=== PATIENT | male | born 1970 | race Caucasian/White ===

== ENCOUNTER 2021-12-16 13:46 | Outpatient (CLI) | payer OTHER, SELFPAY ==
--- NOTE | ~2021-12-16 | XR_ITS ---
XR shoulder LT min 2V DATE: 12/16/2021 14:08 INDICATION: Anterior left shoulder pain after lifting weights TECHNIQUE: 4 views COMPARISON: None FINDINGS: There is mild degenerative spurring of the left acromioclavicular joint. No fracture or dis location, periosteal reaction or bone destruction or abnormal soft tissue calcification. IMPRESSION: No fracture or dislocation Mild degenerative spurring at left acromioclavicular joint Reviewed, dictated and finalized at location A.
== END 2021-12-16 13:47 | disposition home or self-care (01) ==
LOC: ANHIMG 13:52
PROVIDERS: PCP Family Medicine; Visit Provider Nurse Practitioner Adult Health
DX: M25.512 Pain in left shoulder (principal); M77.8 Other enthesopathies, not elsewhere classified
CPT/HCPCS: 73030

== ENCOUNTER 2024-04-21 10:33 | Outpatient (CLI) | payer OTHER, SELFPAY ==
--- NOTE | ~2024-04-21 | CT_ITS ---
EXAMINATION: CT shoulder LT wo con DATE: 04/21/2024 11:10 INDICATION: Left shoulder pain. TECHNIQUE: Computed tomography (CT) of the left shoulder was performed without intravenous contrast. Automated exposure control and iterative reconstruction technique were employed. The dose-length prod uct was 288.55 mGy-cm. COMPARISON: Left shoulder radiographs 12/16/2021 FINDINGS: Bone alignment is normal. No fracture. There is moderate osteoarthritis of acromioclavicula r joint and mild osteoarthritis of glenohumeral joint. There are dystrophic calcifications inferomedi al to lesser tuberosity. The musculature is normal. IMPRESSION: 1. Polyarticular osteoarthritis. Reviewed, dictated and finalized at location A.
== END 2024-04-21 10:34 | disposition home or self-care (01) ==
LOC: ANHIMG 10:34
PROVIDERS: PCP Family Medicine; Visit Provider Family Medicine
DX: M19.012 Primary osteoarthritis, left shoulder (principal)
CPT/HCPCS: 73200

== ENCOUNTER 2025-09-08 20:05 | Emergency (ER) | payer BC, SELFPAY ==
--- OUTSIDE RECORDS SUMMARY | 2025-09-07 15:00 | XMS_ITS | Encounter Summary ---
Author Organization [facility] Address [address] [place] [address] Care Team Providers Care Wood Type Finisher Name Role Phone Unavailable Primary Care Provider Unavailabl e Reason for Referral * Eval and Treat (Elective) - Open Specialty Diagnoses / Procedures Referred By Norman flood Referred To Contact Orthopedic Surgery Diagnoses Localized swelling, mass, or lump of right upper extremity Procedures CT OFFICE/OUTPATIENT ESTABLISHED MOD MDM [address] OFFICE/OUTPATIENT NEW MODERATE MDM 45 [place] [address] [place] [address] Phone: tel: fax: Jose Miguel Swanson MD [address] [address] Phone: tel: fax: Referral ID Status Reason Start Date Expiration Date Visits Re quested Visits Authorized [id number] Open 09/07/2025 09/07/2026 1 1 ER LAP TENDER Reason for Visit * Reason Comments lump On left deltoid , 1x week, pain started 2x day ago. Encounter Details Date Type Department Care Team (Late st Contact Info) Description 09/07/2025 3:00 PM SLIVER LAP TENDER Office Visit [facility] [place] [address] [place] [id number] [facility] [place] [address] [place] [address] Localized swelling, mass, or lump of right upper extremity (Primary Dx) Social History Tobacco Use Types Packs/Day Years Used Date Smoking Tobacco: Never Tobacco Cessation:Counseling Given: No Sex and Gender Information Value Date Recorded Sex Assigned at Not on file Legal Sex Male 2:57 AM SLIVER LAP TENDER Gender Identity Not on file Sexual Orientation Not on file documented as of this encounter Last Filed Vital Signs Vital Sign Reading Time Taken Comments Blood Pressure 158/76 09/07/2025 3:11 PM SLIVER LAP TENDER Pulse 87 09/07/2025 3:11 PM SLIVER LAP TENDER Temperature 36.7 C (98.1 F) 09/07/2025 3:11 PM SLIVER LAP TENDER Respiratory Rate 18 09/07/2025 3:11 PM SLIVER LAP TENDER Oxygen Saturation 98% 09/07/2025 3:11 PM SLIVER LAP TENDER Inhaled Oxygen Concentration - - Weight 81.6 kg (180 lb) 09/07/2025 3:11 PM SLIVER LAP TENDER Height 170.2 cm (5' 7) 09/07/2025 3:11 PM SLIVER LAP TENDER Body Mass Index 28.19 09/07/2025 3:11 PM SLIVER LAP TENDER documented in this encounter Patient Instructions * Attachments The following attachments cannot be sent through Care Everywhere. * Seroma: General Info (Frisian) documented in this encounter Progress Notes * Rubina Russo PA - 09/07/2025 3:00 PM CST Assessment and Plan Encounter Diagnosis Name Primary? Localized swelling, mass, or lump of right upper extremity Yes Arturo was seen today for lump. Diagnoses and all orders for this visit: Localized swelling, mass, or lump of right upper extremity - AMB REFERRAL TO ORTHOPEDIC SURGERY Other orders - cefadroxil (DURICEF) 500 mg capsule; Take 1 Capsule (500 mg) by mouth every 12 hours for 7 days. Comment: Diff dx: Seroma, abscess, hematoma, mass, other cyst, foreign body. Exam and hx c/w seroma at injection site. He is concerned about infection given increased pain in past 1-2 days and will cover with Duricef however history and exam with low suspicion for abscess. Would expect to see ecchymosis if this was hematoma which is not present. Advised to stop use of steroid given he is not having respiratory concerns to support use of oral steroid. F/U with Ortho for further evaluation. Do not have US available at urgent care to evaluate. He is advised to avoid IM injections in this area until this evaluated. Discussed signs/sx that would indicate need for repeat evaluation and/or ED. Vital signs and exam are reassuring. Advise follow-up with PCP or Ortho in 2-3 days if symptoms not improving, or follow-up with ED immediately if symptoms worsen. Subjective History of present illness Arturo Alvarez is a 55 y.o. male who presents with localized swelling to L upper shoulder x one week. He gives himself testosterone injections weekly and this was site of injection prior to onset of swelling. In the past 2 days the area has become painful. Denies N/T, fever, N/V, weakness. He has hx of similar condition to previous injection site on his R thigh however he states the swelling wentaway after a couple of days. He is currently being treated for a respiratory illness w/prednisone. Review of Systems Constitutional: has had no fever, chills, body aches, or recent illness. ENT: has had no sore throat, earache, nasal congestion, or sinus tenderness. Respiratory: has had no cough or shortness of breath. Cardiac: has had no chest pain or palpitations. Musculoskeletal: has had no pain in the joints or extremities. Muscle aches or stiffness. Dermatologic: has had recent raches or lesions. Neurologic: has had no recent headache, dizziness, numbness or tingling. Hematologic: has had no spontaneous bleeding or blood clots. Outpatient Medications Marked as Taking for the 09/07/25 encounter (Office Visit) with Micah Russo PA Medication Sig Dispense Refill albuterol sulfate 90 mcg/Actuation inhaler INHALE 1 TO 2 PUFFS BY MOUTH EVERY 4 TO 6 HOURS NEEDED FOR COUGH celecoxib (CeleBREX) 100 mg capsule Take 1 Capsule by mouth 2 times daily. dextroamphetamine-amphetamine (ADDERALL) 30 mg tablet Take 1 Tablet by mouth daily. methylPREDNISolone (MEDROL DOSPACK) 4 mg Tablets, Dose Pack take by mouth as directed on inside of package benzonatate (TESSALON) 100 mg capsule TAKE 1 CAPSULE BY MOUTH EVERY 6 TO 8 HOURS NEEDED cefadroxil (DURICEF) 500 mg capsule Take 1 Capsule (500 mg) by mouth every 12 hours for 7 days. 14 Capsule 0 There are no active problems to display for this patient. Social History Tobacco Use Smoking status: Never Substance Use Topics Drug use: Yes No family history on file. Objective Vitals: 09/07/25 1511 BP: (!) 158/76 Pulse: 87 Resp: 18 Temp: 98.1 ??F (36.7 ??C) SpO2: 98% Physical Exam General: Well-appearing, in no acute distress. HEENT: NCAT. PERRLA. EOMI. Nose/throat clear. Neck: Supple w/FROM. Neg tenderness. Neg lymphadenopathy. RESP: Normal resp effort. No cough. Clear. CV: Regular rate. Extrem: No peripheral edema. Normal capillary refill. MSK: L upper extremity: annular cystic mass to upper lateral surface of arm overlying deltoid that measures 3.5 cm x 3 cm. Tender to palpation; neg redness, induration. Skin intact w/o rash. Palpation c/w seroma. L shoulder FROM, 5/5 strength and intact sensation. Muscle compartments soft and non tender. Does not feel fluctuant and w/o tenderness expected with an abscess of this size. Skin: See above. Neuro: Moves all extremities equally, sensation globally intact, speaking clearly and appropriately. ER LAP TENDER documented in this encounter Miscellaneous Notes * Patient Instructions - Rubina Russo PA - 09/07/2025 3:00 PM CST Thank you for choosing [facility] to provide your urgent care needs. It was our pleasure to serve you! The source of the swelling is unclear. The most likely source is a seroma which can occur after injections and sometimes over surgical incisions. You are started on an antibiotic to treat for infectious source of the swelling. If you develop increased swelling, pain, redness, fever you need to be re-evaluated. If a physician referral was ordered for you today, you should receive a phone call regarding this within one business day. If not, contact Central Referral Scheduling at [phone] during normal work hours. Inform them you had a referral ordered during your visit at the [facility]. ER LAP TENDER documented in this encounter Plan of Treatment Scheduled Referrals Name Type Priority Associated Diagnoses Order Schedule AMB REFERRAL TO ORTHOPEDIC SURGERY Outpatient Referral Routine Localized swelling, mass, or lump of right upper extremity Ordered: 09/07/2025 documented as of this encounter Visit Diagnoses Diagnosis Localized swelling, mass, or lump of right upper extremity- Primary documented in this encounter
--- NOTE | ~2025-09-08 | XR_ITS ---
XR shoulder LT min 2V HISTORY: bursitis . COMPARISON: None. FINDINGS: 4 views of the left shoulder demonstrate no acute fracture or dislocation. Acromioclavicular joint and glenohumeral joint are unremarkable. IMPRESSION: Radiographic examination of the left shoulder demonstrates no acute fracture or dislocation. Reviewed, dictated and finalized at location S. ING CENTER MANAGER
[2025-09-08 20:07] VITALS: BP 171/84; PULSE 68; RESP 16; TEMP 36.3; O2SAT 96
--- NOTE | 2025-09-08 21:41 | ED.EXTPRO ---
HPI - Extremity Problem General Chief complaint: Skin/Abscess/Foreign Body Stated complaint: seroma on shoulder, pain in L shoulder Time Seen by Provider: 09/08/25 20:46 Source: patient Mode of arrival: ambulatory Limitations: no limitations History of Present Illness HPI Narrative: This is a 55 year old male that presents to the ER for left shoulder swelling. Reports he bumped the shoulder. Started to have the swelling over the last week. The area is painful. Denies fever, erythema. Related Data Allergies Allergy/AdvReac Type Severity Reaction Status Date / Time AMOXICILLIN TRIHYDRATE Allergy Uncoded 09/22/11 17:04 POTASSIUM CLAVULANATE Allergy Uncoded 09/22/11 17:04 Review of Systems Review of Systems: All systems reviewed & are unremarkable except as noted in HPI and below PMFSH Past Medical History Medical History (Updated 09/08/25 @ 22:36 by Wandy Marks PA-C) Hypothyroidism Exam Narrative: GENERAL: Well-appearing, well-nourished, and in no acute distress. HEAD: Normocephalic, atraumatic. EYES: EOMI. CHEST: Clear to auscultation. No respiratory distress. No wheezes rales or rhonchi HEART: Regular rate and rhythm. No murmur heard. Normal peripheral pulses. EXTREMITIES: Normal range of motion. Edema with fluctuance over the left subacromial bursa. No overlying erythema or warmth. Normal radial pulse SKIN: Warm, dry, no rash. NEURO: No focal deficits. Alert and oriented x3. PSYCH: Normal mood and affect Course Vital Signs Vital signs: Vital Signs Temperature 97.4 F L 09/08/25 20:07 Pulse Rate 68 09/08/25 20:07 Respiratory Rate 16 09/08/25 20:07 Blood Pressure 171/84 H 09/08/25 20:07 Pulse Oximetry 96 09/08/25 20:07 Oxygen Delivery Room Air 09/08/25 20:07 Temperature 97.4 F L 09/08/25 20:07 Pulse Rate 68 09/08/25 20:07 Respiratory Rate 16 09/08/25 20:07 Blood Pressure 171/84 H 09/08/25 20:07 Pulse Oximetry 96 09/08/25 20:07 Oxygen Delivery Room Air 09/08/25 20:07 [facility] MDM Narrative Medical decision making narrative: Patient presents to the emergency department for probable subacromial bursitis. Patient is neurovascularly intact. He is afebrile nontoxic appearing. Left shoulder x-ray without acute findings. Patient refused further blood work, CT scan for further evaluation. Will be given follow-up with Orthopedics. Differential Diagnosis Differential Diagnosis: Bursitis, abscess Imaging Data Radiologist's impression: ITS Impressions Shoulder X-Ray 09/08/25 21:25 IMPRESSION: Radiographic examination of the left shoulder demonstrates no acute fracture or dislocation. Critical Care Time Critical Care Time Critical Care Time: No Discharge Plan Discharge Clinical Impression: Subacromial bursitis of left shoulder joint Patient Disposition: Home Condition: Stable Instructions: Shoulder Bursitis (ED) Additional Instructions: Return to the ER if you experience fever, redness and swelling of your extremity, numbness or any other symptoms that are concerning to you Follow up with orthopedics for further care. Patient Language: Gambian Follow-up/Referrals: Maximus Barry MD [Primary Care Provider, Family Practice] Romeo Tran MD [Physician, Orthopedics]
--- NOTE | 2025-09-08 21:49 | PC.NURSE ---
Patient refusing blood work/IV at this time
--- OUTSIDE RECORDS SUMMARY | 2025-09-08 21:52 | XMS_ITS | Clinical Summary ---
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 Medicine Infectious Diseases [address] [facility] [address] [place] [address] Arturo Martin MD from Last 3 Months Social History Tobacco Use Types Packs/Day Years Used Date Smoking Tobacco: Never Smokeless Tobacco: Never Tobacco Cessation:Counseling Given: Not Answered Sex and Gender Information Value Date Recorded Sex Assigned at Not on file Legal Sex Male 4:16 PM CDT Gender Identity Not on file Sexual Orientation Not on file Last Filed Vital Signs Vital Sign Reading Time Taken Comments Blood Pressure 157/83 03/08/2025 8:42 AM CDT Pulse 84 03/08/2025 8:42 AM CDT Temperature 36.8 C (98.3 F) 03/08/2025 8:42 AM CDT Respiratory Rate - - Oxygen Saturation 97% 03/08/2025 8:42 AM CDT Inhaled Oxygen Concentration - - Weight 80.7 kg (178 lb) 03/08/2025 8:42 AM CDT Height 170.2 cm (5' 7) 03/08/2025 8:42 AM CDT Body Mass Index 27.88 03/08/2025 8:42 AM CDT Plan of Treatment Health Maintenance Due Date Last Done Comments Colon Cancer Screening-Colonoscopy 1971 Depression Screening 1971 Hepatitis C Screening 1971 Prostate Cancer Screening-PSA 1971 DTaP/Tdap/Td Vaccine (1 - Tdap) 1982 Hepatitis B Screening 1989 Regular Well Visit/Exam 18-64 1989 Zoster Vaccine (1 of 2) 2021 Influenza Vaccine (#1) 2025 Pneumococcal vaccine <65 Aged Out No longer eligible based on patient's age to complete this topic Insurance [email or web address] ACCESS CHOICE ANTH ACCESS CHOICE Care Teams Mri Assistant Relationship Specialty Start Date End Date Curtis Sands NP [address] [place] [address] PCP - General Family Practice 01/17/25
== END 2025-09-08 22:46 | disposition home or self-care (01) ==
PROVIDERS: Emergency Provider Physician Assistant; PCP Family Medicine
DX: M75.52 Bursitis of left shoulder (principal); E03.9 Hypothyroidism, unspecified
CPT/HCPCS: 73030; 99283